=== PATIENT | male | born 1985 | race Caucasian/White ===

== ENCOUNTER 2023-09-05 09:35 | Emergency (ER) | payer BC ==
[~2023-09-05] VITALS: Ht 177.8 cm; Wt 91.0 kg
[2023-09-05 09:44] VITALS: TEMP 98.5; O2SAT 99
[2023-09-05] MEDS ORDERED: LIDOCAINE HCL 1% 20ML VIAL (Pyxis) INJ INFIL ONE (10:15)
[2023-09-05] MEDS ORDERED: AMOX1TAB16 MT (11:47)
[2023-09-05] MEDS ORDERED: IBUP-2028 MT (12:22)
[2023-09-05] MEDS ORDERED: IBUPROFEN 400MG TABLET PO ONE (12:30)
[2023-09-05 13:09] VITALS: BP 137/74; PULSE 78; RESP 18
== END 2023-09-05 13:10 | disposition home or self-care (01) ==
LOC: ER 09:57
DX: L03.011 Cellulitis of right finger (principal); E78.00 Pure hypercholesterolemia, unspecified
CPT/HCPCS: 10060; 99283; J3490; Z7610 ×3